=== PATIENT | male | born 1980 | race Hispanic/Latino ===

== ENCOUNTER 2020-11-28 09:51 | Emergency (ER) | payer OTHER ==
[~2020-11-28] VITALS: Ht 177.8 cm; Wt 96.2 kg
[2020-11-28] MEDS ORDERED: ALBUTEROL/IPRATROPIUM 3 ML NEB NEB ONE (10:15)
[2020-11-28] MEDS ORDERED: PREDNISONE 20 MG TAB PO ONE (10:15)
[2020-11-28] MEDS ORDERED: ALBUTEROL/IPRATROPIUM 3 ML NEB ONE (10:26)
[2020-11-28] MEDS ORDERED: PREDNISONE20 MG PO (10:37)
[2020-11-28] MEDS ORDERED: AUGMENTIN 875-1 EACH PO (10:38)
[2020-11-28] MEDS ORDERED: VENTOLIN HFA18 GM INH (10:42)
[2020-11-28] MEDS ORDERED: SYMBICORT 16010.2 GM INH (10:44)
== END 2020-11-28 11:03 | disposition home or self-care (01) ==
LOC: FSED 10:10
DX: J20.9 Acute bronchitis, unspecified (principal); J45.901 Unspecified asthma with (acute) exacerbation
CPT/HCPCS: 99283; J7512

== ENCOUNTER 2022-10-25 21:50 | Emergency (ER) | payer OTHER ==
[~2022-10-25 21:50] MED LIST: AUGMENTIN 875-1 EACH PO; PREDNISONE20 MG PO; SYMBICORT 16010.2 GM INH; VENTOLIN HFA18 GM INH
== END 2022-10-25 22:30 | disposition left against medical advice (07) ==
LOC: ER 21:55
DX: R42 Dizziness and giddiness (principal)

== ENCOUNTER 2022-10-26 19:52 | Emergency (ER) | payer OTHER ==
[~2022-10-26] VITALS: Ht 180.3 cm; Wt 89.8 kg
[2022-10-26] MEDS ORDERED: KETOROLAC TROMETHAMINE 30 MG/ML VIAL IV STA (20:06)
[2022-10-26] MEDS ORDERED: IOPAMIDOL 370 MG/ML 100 ML INFUS..BTL INJ ONE (20:14)
[2022-10-26] MEDS ORDERED: SODIUM CHLORIDE 0.9% 1000ML 1,000 ML IV STA (21:12)
[2022-10-26] MEDS ORDERED: SODIUM CHLORIDE 0.9% 1000ML 1,000 ML ONE (21:13)
[2022-10-26 22:55] VITALS: BP 147/86; PULSE 71; RESP 18; TEMP 97.4; O2SAT 98
== END 2022-10-26 22:55 | disposition home or self-care (01) ==
LOC: FSED 19:58
DX: R07.89 Other chest pain (principal); R06.00 Dyspnea, unspecified; E78.5 Hyperlipidemia, unspecified; J45.909 Unspecified asthma, uncomplicated; F41.9 Anxiety disorder, unspecified
CPT/HCPCS: 71260; 80053; 81003; 84484; 85025; 85379; 93005; 96374; 99284; J1885; J7030; Q9967

== ENCOUNTER 2022-10-29 20:18 | Emergency (ER) | payer OTHER ==
[~2022-10-29] VITALS: Ht 177.8 cm; Wt 88.0 kg
[2022-10-29] MEDS ORDERED: LORAZEPAM INJ 2 MG/ML VIAL ONE (21:12)
[2022-10-29] MEDS ORDERED: LORAZEPAM INJ 2 MG/ML VIAL IV ONE (21:15)
[2022-10-29 22:20] VITALS: BP 154/86; PULSE 66; RESP 18; TEMP 97; O2SAT 99
== END 2022-10-29 22:20 | disposition home or self-care (01) ==
LOC: FSED 20:54
DX: F41.9 Anxiety disorder, unspecified (principal); E78.5 Hyperlipidemia, unspecified; J45.909 Unspecified asthma, uncomplicated; E78.00 Pure hypercholesterolemia, unspecified
CPT/HCPCS: 80048; 84484; 85025; 93005; 96374; 99283; J2060

== ENCOUNTER 2022-10-31 20:12 | Emergency (ER) | payer OTHER ==
[~2022-10-31] VITALS: Ht 177.8 cm; Wt 88.0 kg
[2022-10-31] MEDS ORDERED: SODIUM CHLORIDE 0.9% 1000ML 1,000 ML IV STA ×2 (20:20→20:28)
[2022-10-31] MEDS ORDERED: SODIUM CHLORIDE 0.9% 1000ML 2,000 ML ONE (20:54)
[2022-10-31 20:58] LABS: BASOPHILS # (AUTO) 0.1 (0.0-0.1); BASOPHILS % 0.6 % (0.0-1.0); EOSINOPHILS # (AUTO) 0.5 (0.0-0.4); EOSINOPHILS % 4.6 % (0.0-6.0); HEMATOCRIT 44.2 % (38.2-49.6); HEMOGLOBIN 14.8 g/dL (14.0-18.0); LYMPHOCYTES # (AUTO) 3.1 (1.0-3.2); LYMPHOCYTES % 27.3 % (18.0-39.1); MEAN CORPUSCULAR HEMOGLOBIN 27.3 pg (28-32); MEAN CORPUSCULAR HGB CONC 33.5 g/dL (31-35); MEAN CORPUSCULAR VOLUME 81.5 fL (81-99); MONOCYTES # (AUTO) 0.6 (0.2-0.8); MONOCYTES % 5.5 % (4.4-11.3); NEUTROPHILS % 61.7 % (38.7-80.0); PLATELET COUNT 292 x10e3/uL (140-360); RED BLOOD COUNT 5.42 x10e6/uL (4.3-5.7); RED CELL DISTRIBUTION WIDTH 12.7 % (11.7-14.4)
[2022-10-31 21:26] LABS: ALANINE AMINOTRANSFERASE 17 IU/L (0-55); ALBUMIN 4.5 g/dL (3.5-5.0); ALBUMIN/GLOBULIN RATIO 1.4 (0.8-2.0); ALKALINE PHOSPHATASE 43 IU/L (40-150); ANION GAP 13.7 mmol/L (8-16); BLOOD UREA NITROGEN 11 mg/dL (7-26); BUN/CREATININE RATIO 10 (6-25); CALCIUM 9.5 mg/dL (8.4-10.2); CARBON DIOXIDE 24 mmol/L (22-29); CHLORIDE 104 mmol/L (98-107); CREATINE KINASE 153 IU/L (30-200); CREATININE, SERUM 1.11 mg/dL (0.72-1.25); GLUCOSE 108 mg/dL (74-118); POTASSIUM 3.7 mmol/L (3.5-5.1); SODIUM 138 mmol/L (136-145)
[2022-10-31] MEDS ORDERED: KETOROLAC TROMETHAMINE 30 MG/ML VIAL IV STA (22:33)
[2022-10-31] MEDS ORDERED: METOCLOPRAMIDE HCL 10 MG/2ML VIAL IV STA (22:33)
[2022-10-31] MEDS ORDERED: FIORICET-COD 51 EACH PO (22:36)
[2022-10-31] MEDS ORDERED: AMBIEN5 MG PO (22:36)
[2022-10-31] MEDS ORDERED: FIORICET 50-301 EACH PO (22:40)
[2022-10-31] MEDS ORDERED: DIPHENHYDRAMINE HCL INJ 50 MG/ML VIAL IV ONE (22:45)
[2022-10-31] MEDS ORDERED: KETOROLAC TROMETHAMINE 30 MG/ML VIAL ONE (22:53)
[2022-10-31] MEDS ORDERED: METOCLOPRAMIDE HCL 10 MG/2ML VIAL ONE (22:53)
[2022-10-31] MEDS ORDERED: DIPHENHYDRAMINE HCL INJ 50 MG/ML VIAL ONE (22:53)
[2022-10-31 23:25] VITALS: BP 131/80; PULSE 62; RESP 18; TEMP 97.8; O2SAT 98
== END 2022-10-31 23:25 | disposition home or self-care (01) ==
LOC: FSED 20:15
DX: R07.89 Other chest pain (principal); R51.9 Headache, unspecified; I10 Essential (primary) hypertension; E78.5 Hyperlipidemia, unspecified; J45.909 Unspecified asthma, uncomplicated; E78.00 Pure hypercholesterolemia, unspecified; F41.9 Anxiety disorder, unspecified
CPT/HCPCS: 36415; 70450; 80053; 82550; 83690; 83880; 84484; 85025; 85379; 93005; 99284; J1200; J1885; J2765; J7030